=== PATIENT | male | born 1970 | race Two or more races ===

== ENCOUNTER 2021-06-01 21:51 | Emergency (ER) | payer OTHER ==
[~2021-06-01] VITALS: Ht 170.2 cm; Wt 145.1 kg
--- NOTE | 2021-06-01 21:58 | NUR ---
Dr. Pro at bedside for MSE.
[2021-06-01] MEDS ORDERED: APIX5TAB PO (22:01)
[2021-06-01] MEDS ORDERED: ONDANSETRON 4 MG/2 ML VIAL IV ONE (22:15)
[2021-06-01] MEDS ORDERED: NITROGLYCERIN 0.4 MG/TAB BOTTLE SL ONE ×2 (22:15→22:32)
[2021-06-01] MEDS ORDERED: ASPIRIN 81 MG TAB.CHEW PO ONE (22:15)
[2021-06-01] MEDS ORDERED: BP MEDICATION (22:31)
[2021-06-01] MEDS ORDERED: ONDANSETRON 4 MG/2 ML VIAL ONE (22:31)
[2021-06-01] MEDS ORDERED: ASPIRIN 81 MG TAB.CHEW ONE (22:31)
--- NOTE | 2021-06-01 22:47 | NUR ---
Xray at bedside.
[2021-06-01] MEDS ORDERED: IOHEXOL 300MG/ML 100 ML INFUS..BTL ONE (23:13)
[2021-06-01] MEDS ORDERED: SWABABLE VALVE TRANSFER SET EA MC ONE (23:13)
[2021-06-01] MEDS ORDERED: IV NORMAL SALINE 250 ML IV ONE (23:13)
[2021-06-02 00:10] LABS: HEMATOCRIT 41.2 % (36.7-47.1); MEAN CORPUSCULAR HEMOGLOBIN 31.1 uug (23.8-33.4); MEAN CORPUSCULAR VOLUME 91.5 fL (73.0-96.2); PLATELET COUNT (AUTO) 287 K/uL (152-348)
[2021-06-02 01:12] LABS: BILIRUBIN,TOTAL 0.5 mg/dL (0.2-1.0); CREATININE 1.3 mg/dL (0.6-1.3); POTASSIUM 4.3 mmol/L (3.5-5.1)
[2021-06-02 01:13] LABS: BILIRUBIN,DIRECT 0.1 mg/dL (0.0-0.2); TOTAL PROTEIN, SERUM 7.5 g/dL (6.4-8.2)
--- NOTE | 2021-06-02 01:19 | NUR ---
Pt out of ER for CT.
[2021-06-02] MEDS ORDERED: LORAZEPAM 2 MG/1 ML VIAL ONE (01:35)
[2021-06-02] MEDS ORDERED: LORAZEPAM 2 MG/1 ML VIAL IV ONE (01:45)
--- NOTE | 2021-06-02 02:21 | NUR ---
Pt back to ER from CT.
--- NOTE | 2021-06-02 05:55 | NUR ---
Dr. Pro spoke with Dr. Ellis. Pt accepted for admission to [facility] by Dr. Ellis.
[2021-06-02 06:43] VITALS: BP 184/117
[2021-06-02] MEDS ORDERED: hydrALAZINE HCL 20 MG/1 ML VIAL IV ONE (06:45)
[2021-06-02] MEDS ORDERED: hydrALAZINE HCL 20 MG/1 ML VIAL ONE (06:50)
--- NOTE | 2021-06-02 07:50 | NUR ---
Spoke to marylou Chino, pt to be transfered to [facility] to arrange for transfer.
--- NOTE | 2021-06-02 12:30 | NUR ---
Called [facility] for ALS briatric transfer, none avail today.
--- NOTE | 2021-06-02 12:36 | NUR ---
Place a call to [facility] for transfer, non available.
--- NOTE | 2021-06-02 12:44 | NUR ---
[facility] ETA 1 hour.
--- NOTE | 2021-06-02 12:56 | NUR ---
Report given to [employer] ER charge out clerk, Maritza.
--- NOTE | 2021-06-02 14:37 | NUR ---
Report given to ALS tranporter, all belongings sent w/ pt.
--- NOTE | 2021-06-02 14:45 | NUR ---
Pt left ER in stable condition via gurney.
== END 2021-06-02 15:07 | disposition short-term general hospital (02) ==
LOC: ER 21:59
DX: R07.9 Chest pain, unspecified (principal); R51.9 Headache, unspecified; E11.9 Type 2 diabetes mellitus without complications; I10 Essential (primary) hypertension; Z79.899 Other long term (current) drug therapy; Z20.822 Contact with and (suspected) exposure to COVID-19
CPT/HCPCS: 36415; 70450; 71045; 71275; 80048; 80076; 83880; 84484; 85025; 87426; 93005; 93971; 96374; 96375; 99285; J0360; J2060; J2405; Q9967; 70030-TC; A4663; J7050